=== PATIENT | female | born 1950 | race Caucasian/White ===

== ENCOUNTER 2018-01-26 19:18 | Emergency (ER) | payer OTHER ==
[~2018-01-26] VITALS: Ht 165.1 cm; Wt 79.8 kg
[2018-01-26 19:50] VITALS: BP 149/81
== END 2018-01-26 22:08 | disposition home or self-care (01) ==
LOC: ER 19:27
DX: R51 Headache (principal); M54.2 Cervicalgia; E11.9 Type 2 diabetes mellitus without complications; W01.198A Fall on same level from slipping, tripping and stumbling with subsequent striking against other object, initial encounter; Y93.89 Activity, other specified; Y92.89 Other specified places as the place of occurrence of the external cause; Y99.8 Other external cause status
CPT/HCPCS: 70450-TC; 72125-TC; A4606; Z7610

== ENCOUNTER 2018-12-02 13:30 | Emergency (ER) | payer OTHER ==
[~2018-12-02] VITALS: Ht 157.5 cm; Wt 80.7 kg
[2018-12-02 13:30] VITALS: BP 128/85
--- NOTE | 2018-12-02 14:16 | NUR ---
DR. MCELROY AT BEDSIDE FOR EVAL.
[2018-12-02] MEDS ORDERED: KETOROLAC TROMETHAMINE INJ 60 MG/2 ML VIAL IM ONE ×2 (14:23→14:30)
--- NOTE | 2018-12-02 16:10 | NUR ---
Patient discharged to home in stable condition. Written and verbal after care instructions given. Patient verbalizes understanding of instruction.
== END 2018-12-02 16:11 | disposition home or self-care (01) ==
LOC: ER 13:37
DX: M17.11 Unilateral primary osteoarthritis, right knee (principal); E11.9 Type 2 diabetes mellitus without complications
CPT/HCPCS: 73564; 96372; 99283; A4606; J1885

== ENCOUNTER 2021-08-11 20:49 | Emergency (ER) | payer OTHER ==
[~2021-08-11] VITALS: Ht 152.4 cm; Wt 77.1 kg
[2021-08-11 21:07] VITALS: BP 113/80
--- NOTE | 2021-08-11 21:20 | NUR ---
US TECH AT BED SIDE
--- NOTE | 2021-08-11 22:10 | NUR ---
Patient discharged to home in stable condition. Written and verbal after care instructions given. Patient verbalizes understanding of instruction.
== END 2021-08-11 22:12 | disposition home or self-care (01) ==
LOC: ER 20:52
DX: N64.4 Mastodynia (principal); E11.9 Type 2 diabetes mellitus without complications
CPT/HCPCS: 76642-LT-TC

== ENCOUNTER 2024-04-23 14:22 | Emergency (ER) | payer BC, MEDICAID ==
[~2024-04-23] VITALS: Ht 165.1 cm; Wt 79.4 kg
[2024-04-23] MEDS ORDERED: predniSONE 20 MG TABLET ONE (15:59)
[2024-04-23] MEDS: predniSONE 50 MG TABLET PO ONE (16:00)
[2024-04-23 16:09] LABS: BASOPHILS # (AUTO) 0.1 K/uL (0.0-0.2); BASOPHILS % (AUTO) 1.1 % (0.0-2.0); EOSINOPHILS # (AUTO) 0.2 K/uL (0.0-0.7); EOSINOPHILS % (AUTO) 1.6 % (0.0-6.0); HEMATOCRIT 44 % (33-45); HEMOGLOBIN 14.1 g/dL (11.5-14.8); LYMPHOCYTES # (AUTO) 3.3 K/uL (0.8-4.8); LYMPHOCYTES % (AUTO) 24.8 % (20.0-44.0); MEAN CORPUSCULAR HEMOGLOBIN 26 PG (26.0-33.0); MEAN CORPUSCULAR HGB CONC 32 g/dl (31.0-36.0); MEAN CORPUSCULAR VOLUME 80 fL (82-100); MONOCYTES # (AUTO) 0.7 K/uL (0.1-1.30); MONOCYTES % (AUTO) 5.5 % (2.0-12.0); PLATELET COUNT (AUTO) 232 K/uL (150-450); RED BLOOD CELL COUNT(AUTO) 5.42 MIL/uL (4.0-5.2); RED CELL DISTRIBUTION WIDTH 17.1 % (11.5-15.0); WHITE BLOOD COUNT (AUTO) 13.5 K/uL (4.3-11.0)
[2024-04-23 16:16] LABS: CALCIUM, SERUM 9.2 mg/dL (8.5-10.1); CARBON DIOXIDE 29 mmol/L (21-32); CHLORIDE 100 mmol/L (98-107); CREATININE 0.7 mg/dL (0.6-1.3); GLUCOSE 179 mg/dL (74-106); POTASSIUM 4.4 mmol/L (3.5-5.1); SODIUM SERUM 136 mmol/L (136-145); UREA NITROGEN, BLOOD 19 mg/dL (7-18)
[2024-04-23 18:31] VITALS: BP 137/71; TEMP 98.4; O2SAT 98
== END 2024-04-23 18:31 | disposition home or self-care (01) ==
LOC: ER 14:34
DX: M27.8 Other specified diseases of jaws (principal); T78.1XXA Other adverse food reactions, not elsewhere classified, initial encounter; E11.9 Type 2 diabetes mellitus without complications; Z91.013 Allergy to seafood; Z91.014 Allergy to mammalian meats; X58.XXXA Exposure to other specified factors, initial encounter
CPT/HCPCS: 99283; 85025; 80048; 36415; J7512

== ENCOUNTER 2025-08-10 13:56 | Emergency (ER) | payer BC, MEDICAID ==
[~2025-08-10] VITALS: Ht 160 cm; Wt 72.6 kg
[2025-08-10] MEDS: IV NS 0.9% 1,000 ML BAG IV ONE (14:32)
[2025-08-10 14:42] LABS: PLATELET COUNT (AUTO) 180 K/uL (150-450); RED BLOOD CELL COUNT(AUTO) 4.98 MIL/uL (4.0-5.2); RED CELL DISTRIBUTION WIDTH 16.1 % (11.5-15.0); WHITE BLOOD COUNT (AUTO) 9.8 K/uL (4.3-11.0)
[2025-08-10 14:53] LABS: APPEARANCE,URINE CLEAR (CLEAR); BLOOD, URINE NEGATIVE Ery/uL (NEGATIVE); LEUKOCYTE ESTERASE ,URINE NEGATIVE (NEGATIVE); NITRITE, URINE NEGATIVE (NEGATIVE); UGLUCOSE 3+ mg/dL (NEGATIVE)
[2025-08-10 14:54] LABS: CALCIUM, SERUM 8.8 mg/dL (8.5-10.1); CREATININE 0.7 mg/dL (0.6-1.3); SODIUM SERUM 141.0 mmol/L (136-145); UREA NITROGEN, BLOOD 15.0 mg/dL (7-18)
[2025-08-10 15:21] LABS: ADD URINE CULTURE NO; SQUAMOUS EPITHELIAL CELL,UR 0-2 /HPF (None Seen)
[2025-08-10 15:39] VITALS: BP 116/68; TEMP 98.3; O2SAT 98
== END 2025-08-10 15:40 | disposition home or self-care (01) ==
LOC: ER 14:00
DX: R39.9 Unspecified symptoms and signs involving the genitourinary system (principal); R51.9 Headache, unspecified; E11.9 Type 2 diabetes mellitus without complications
CPT/HCPCS: 99283; 96360; 85025; 80048; 81001; 36415; 87210; J7030